=== PATIENT | male | born 1975 | race Two or more races ===

== ENCOUNTER 2019-11-11 17:45 | Emergency (ER) | payer OTHER, MEDICAID ==
[~2019-11-11] VITALS: Ht 188 cm; Wt 120.2 kg
[2019-11-11 21:22] VITALS: BP 142/90
== END 2019-11-11 21:26 | disposition home or self-care (01) ==
LOC: ER 18:02
DX: K04.7 Periapical abscess without sinus (principal)

== ENCOUNTER 2022-03-01 15:12 | Emergency (ER) | payer MEDICAID, OTHER ==
[~2022-03-01] VITALS: Ht 188 cm; Wt 114.3 kg
[2022-03-01 15:19] VITALS: BP 120/75
== END 2022-03-01 16:33 | disposition home or self-care (01) ==
LOC: EDBD 15:12 → ER 15:27
DX: G44.309 Post-traumatic headache, unspecified, not intractable (principal)
CPT/HCPCS: 70450